=== PATIENT | female | born 1990 | race Caucasian/White ===

== ENCOUNTER → 2017-02-12 | Outpatient (CLI) | payer BC ==
--- NOTE | 2017-02-12 15:07 | MAMMOGRAPHY REPORT ---
ULTRASOUND OF LEFT BREAST: 02/12/2017 CLINICAL HISTORY: The patient reports that her physician felt a palpable lump in the left breast dur ing a clinical exam. The patient can feel the lump. COMPARISON: No prior exams were available for comparison. TECHNIQUE: Real-time targeted ultrasound of the left breast was performed. FINDINGS: Real-time, high resolution targeted ultrasound was performed of the area of the palpable lump pointed out by the patient, in the left breast at approximately 1:00, 2 cm from the nipple. At the site of the palpable lump there is an oval anechoic circumscribed mass which measures 6 x 4 x 6 mm. This is consistent with a benign simple cyst, and likely corresponds with the palpable lump. Other cysts were noted during the ultrasound exam, including an oval anechoic circumscribed mass wit h multiple thin internal septations, measuring 1.2 x 0.3 x 0.8 cm in the left breast at 1:00, 3 cm f rom the nipple. Adjacent to this is an oval anechoic benign simple cyst which measures 3 x 4 mm. A nother round anechoic circumscribed benign simple cyst is seen within the left 1:00 subareolar breas t, measuring 5 x 4 mm. No suspicious solid masses were evident. IMPRESSION: ACR BI-RADS CATEGORY 2: BENIGN Small 6 mm benign simple cyst in the left breast at 1:00, which is felt to correspond with the palpa ble lump pointed out by the patient. Other small benign cysts were also seen in the left breast at 1:00 on ultrasound. There is no sonographic evidence of malignancy. Recommend clinical follow-up. The patient was verbally notified of the results. Sharda Pardo M.D. ah/:02/12/2017 08:46:50 [employer]: Linda MANCIA)(Philip), [facility] letter sent: Normal 1/2 BI-RADS Code: ACR BI-RADS Category 2: Benign
== END | disposition home or self-care (01) ==
LOC: C.MAMM 08:24
PROVIDERS: ATTEND Family Medicine
DX: N63 Unspecified lump in breast (principal); N60.02 Solitary cyst of left breast

== ENCOUNTER → 2017-09-24 | Outpatient (CLI) | payer BC ==
--- NOTE | 2017-09-24 07:36 | DIAGNOSTIC IMAGING REPORT ---
Biliary ultrasound CLINICAL HISTORY: R10.9,G89.29 right-sided abdominal pain COMPARISON STUDY: No previous studies for comparison. FINDINGS: The liver appears sonographically normal. The pancreas appears sonographically normal. The gallbladder appears sonographically normal. There is no ductal dilatation. The common bile duct measures 2 mm. There is no right-sided hydronephrosis. IMPRESSION: Normal biliary ultrasound. Electronically signed by: Slim Mack M.D. 09/24/2017 7:35 AM Dictated Date/Time: 09/24/2017 7:34 AM
== END | disposition home or self-care (01) ==
LOC: C.ULTR 07:05
PROVIDERS: ATTEND Family Medicine
DX: R10.9 Unspecified abdominal pain (principal); G89.29 Other chronic pain

== ENCOUNTER → 2018-02-17 | Outpatient (CLI) | payer BC ==
--- NOTE | 2018-02-17 17:18 | DIAGNOSTIC IMAGING REPORT ---
PELVIC COMPLETE NON OB HISTORY: 27 years-old Female N94.9 acute right adnexal fullness COMPARISON: None available. TECHNIQUE: Multiple real-time sonographic images of the deep pelvic structures were obtained transabdominally and transvaginally assessing grayscale appearance, color and spectral flow FINDINGS: TRANSABDOMINAL: Anteflexed uterus measures 7.9 x 2.6 x 4.4 cm. Endometrium measures 3 mm. Right ovary measures 3.1 x 1.2 x 2.5 cm and is unremarkable with arterial inflow documented. Left ovary measures 4.0 x 1.7 x 2.4 cm. Echogenic lesion of the left ovary measures 1.7 cm. TRANSVAGINAL: Anteflexed uterus measures 7.7 x 3.7 x 4.4 cm and is unremarkable. No myometrial mass lesions. Endometrium is homogeneous, 3 mm. Left ovary measures 2.7 x 1.8 x 1.8 cm. Echogenic lesion within the left ovary measures 1.5 x 1.2 x 1.2 cm with possible minimal internal flow. Additionally, there appears be posterior shadowing of the left ovary. Arterial inflow and venous outflow is seen within the left ovary. The right ovary measures 3.0 x 1.2 x 1.7 cm and is unremarkable with arterial inflow and venous outflow documented. No right adnexal mass lesions. No significant free pelvic fluid. IMPRESSION: 1. 1.5 cm echogenic lesion of the left ovary is suspicious for an ovarian dermoid. No evidence of ovarian torsion. 2. Unremarkable sonographic appearance of the right ovary, uterus and endometrium. 3. No significant free pelvic fluid. The above report was generated using voice recognition software. It may contain grammatical, syntax or spelling errors. Electronically signed by: Maikel Magdaleno M.D. 02/17/2018 5:16 PM Dictated Date/Time: 02/17/2018 5:11 PM
== END | disposition home or self-care (01) ==
LOC: C.ULTR 15:22
PROVIDERS: ATTEND Family Medicine
DX: N94.9 Unspecified condition associated with female genital organs and menstrual cycle (principal); N83.9 Noninflammatory disorder of ovary, fallopian tube and broad ligament, unspecified